=== PATIENT | male | born 1960 | race Caucasian/White ===

== ENCOUNTER 2022-08-11 12:48 | Outpatient (CLI) | payer OTHER | END 2022-08-11 12:49 | disposition home or self-care (01) | LOC: SCSMRI 12:48 | PROVIDERS: ATTEND Podiatrist | DX: M76.62 Achilles tendinitis, left leg (principal); S99.822A Other specified injuries of left foot, initial encounter; M79.662 Pain in left lower leg; M25.572 Pain in left ankle and joints of left foot ==

== ENCOUNTER 2022-12-30 12:35 | Outpatient (CLI) | payer OTHER ==
[2022-12-30 13:55] LABS: Hematocrit 38.8 % (38.8-50.0); Hemoglobin 14.1 g/dL (13.5-17.5); Mean Corpuscular HGB CONC 36.3 g/dL (32.0-36.0); Mean Corpuscular Hemoglobin 33.6 pg (27.0-33.0); Mean Corpuscular Volume 92.4 fl (81.2-95.1); Mean Platelet Volume 9.3 fl (7.4-10.4); Platelet Count 428 10x3/uL (150-450); RBC Distribution Width 13.1 % (11.5-14.5); White Blood Cell (WBC) Count 7.6 10x3/uL (3.5-10.5)
[2022-12-30 14:16] LABS: INR-International Normal Ratio 0.9; Prothrombin Time 9.7 sec (9.5-12.1)
[2022-12-30 14:59] LABS: Anion Gap 16 mmol/L (10-20); BUN (Urea Nitrogen) 22 mg/dL (8.4-25.7); Calc. Creatinine Clearance 0 mL/min (70-130); Calcium 9.2 mg/dL (7.8-10.44); Carbon Dioxide 22 mmol/L (23-31); Chloride 106 mmol/L (98-107); Estimated GFR 68; Glucose 144 mg/dL (80-115); Potassium 4.2 mmol/L (3.5-5.1); Sodium 140 mmol/L (136-145)
== END 2022-12-30 12:36 | disposition home or self-care (01) ==
LOC: LABBT 12:35
PROVIDERS: ATTEND Neurological Surgery
DX: Z01.812 Encounter for preprocedural laboratory examination (principal); M48.061 Spinal stenosis, lumbar region without neurogenic claudication
CPT/HCPCS: 80048; 85027; 85610; 85730

== ENCOUNTER 2023-01-01 10:10 | Observation (INO) | payer OTHER ==
[2022-12-30 13:08] VITALS: BMI 32.3
[2023-01-01] MEDS ORDERED: Scopolamine 1.5 mg/72 hour Patch ONE (10:45)
[2023-01-01] MEDS ORDERED: Fentanyl 250 MCG/5 ML VIAL ONE (11:04)
[2023-01-01] MEDS ORDERED: HYDROmorphone 2 MG/ML VIAL ONE (11:04)
[2023-01-01] MEDS ORDERED: EPINEPHrine 1 MG/ML AMP ONE (11:29)
[2023-01-01] MEDS ORDERED: Vancomycin 1 GM VIAL ONE (11:29)
[2023-01-01] MEDS ORDERED: Bupivacaine PF 0.5% 30 ML VIAL ONE (11:29)
[2023-01-01] MEDS ORDERED: Thrombin 5000 UNITS/5 ML VIAL ONE (11:30)
[2023-01-01] MEDS ORDERED: CEFAZOLIN 2 GM VIAL ONE (11:56)
[2023-01-01] MEDS ORDERED: Sodium Chloride 0.9% 100 ML ONE (11:56)
[2023-01-01] MEDS ORDERED: SUGAMMADEX SODIUM 200 MG/2 ML VIAL ONE (12:00)
[2023-01-01] MEDS ORDERED: Midazolam HCl 2 mg/2 ml Vial ONE (12:04)
[2023-01-01] MEDS ORDERED: Ondansetron PF 4 MG/2 ML Vial ONE (12:10)
[2023-01-01] MEDS ORDERED: Rocuronium Bromide 10 MG/ML (10ML VIAL) ONE (12:10)
[2023-01-01] MEDS ORDERED: Glycopyrrolate 0.2 MG/ML 5 ML SYRINGE ONE (12:10)
[2023-01-01] MEDS ORDERED: Lidocaine 1% PF 5 ML VIAL ONE (12:10)
[2023-01-01] MEDS ORDERED: Dexamethasone 20 MG/5 ML VIAL ONE (12:10)
[2023-01-01] MEDS ORDERED: ePHEDrine Sulfate 50 MG/10 ML VIAL ONE ×2 (12:10→16:24)
[2023-01-01] MEDS ORDERED: PHENYLEPHRINE-NS 100 MCG/ML 10 ML SYRINGE ONE (12:10)
[2023-01-01] MEDS ORDERED: NEOSTIGMINE 3 MG/3 ML SYR 3 MG/3 ML SYRINGE ONE (12:10)
[2023-01-01] MEDS ORDERED: PROPOFOL 200 MG/20 ML VIAL ONE (12:10)
[2023-01-01] MEDS ORDERED: Vasopressin 20 UNITS/ML VIAL ONE ×2 (13:17→16:39)
[2023-01-01] MEDS ORDERED: Ondansetron HCl/PF 4 MG/2 ML Vial IVP PRN (14:36)
[2023-01-01] MEDS ORDERED: HYDROmorphone 2 MG/ML VIAL SLOW IVP PRN (14:36)
[2023-01-01] MEDS ORDERED: Promethazine HCl 25 MG/ML VIAL IM PRN (14:36)
[2023-01-01] MEDS ORDERED: Dexmedetomidine 200 MCG/2 ML VIAL ONE (14:56)
[2023-01-01] MEDS ORDERED: fentaNYL 50 mcg/mL 1 mL Vial ONE ×3 (15:51→19:20)
[2023-01-01] MEDS ORDERED: Bisacodyl 10 MG SUPP PR PRN (16:19)
[2023-01-01] MEDS ORDERED: Mag-Al 1200 mg/1200 mg/30 ML UDCUP PO PRN (16:19)
[2023-01-01] MEDS ORDERED: Acetaminophen 325 MG TAB PO PRN (16:19)
[2023-01-01] MEDS ORDERED: Acetaminophen/Codeine 30-300mg Tablet PO PRN (16:19)
[2023-01-01] MEDS ORDERED: HYDROcodone/Acetaminophen 7.5/325 mg Tablet PO PRN (16:19)
[2023-01-01] MEDS ORDERED: diphenhydrAMINE 50 MG/ML VIAL IVP PRN (16:19)
[2023-01-01] MEDS ORDERED: Ondansetron PF 4 MG/2 ML Vial IVP PRN (16:19)
[2023-01-01] MEDS: Sodium Chloride 0.9% 1,000 ML IV SCH (20:50)
[2023-01-01] MEDS: CEFAZOLIN 2 GM in Sodium Chloride 0.9% 100 ML IVPB SCH (20:51)
[2023-01-01] MEDS ORDERED: Atorvastatin Calcium 40 MG TAB PO SCH (21:00)
[2023-01-01] MEDS ORDERED: Tamsulosin HCl 0.4 MG CAP PO SCH (21:00)
[2023-01-02] MEDS: HYDROcodone/Acetaminophen 10/325 mg Tablet PO PRN ×4 (00:13→14:10)
[2023-01-02] MEDS: tiZANidine HCl 4 MG TAB PO PRN ×2 (04:30→11:20)
[2023-01-02] MEDS: Morphine 2 MG/ML VIAL SLOW IVP PRN ×2 (05:58→11:20)
[2023-01-02] MEDS: CEFAZOLIN 2 GM in Sodium Chloride 0.9% 100 ML IVPB SCH (05:58)
[2023-01-02] MEDS ORDERED: Tamsulosin HCl 0.4 MG CAP PO SCH (06:00)
[2023-01-02] MEDS: Sodium Chloride 0.9% 1,000 ML IV SCH (06:12)
[2023-01-02] MEDS ORDERED: Atenolol 25 MG TAB PO SCH (09:00)
[2023-01-02 12:25] VITALS: BP 115/71; TEMP 98.1
== END 2023-01-02 17:08 | disposition home or self-care (01) ==
LOC: SDC 10:10 → INTOOBSV 19:53 → SURG A 19:53
PROVIDERS: ADMIT Neurological Surgery; ATTEND Neurological Surgery
PROC: 01NB0ZZ Release Lumbar Nerve, Open Approach (ICD-10-PCS; principal; 2023-01-02)
DX: M48.062 Spinal stenosis, lumbar region with neurogenic claudication (principal); E78.00 Pure hypercholesterolemia, unspecified; G89.29 Other chronic pain; M19.90 Unspecified osteoarthritis, unspecified site; I48.91 Unspecified atrial fibrillation; I10 Essential (primary) hypertension; Z90.89 Acquired absence of other organs; F17.210 Nicotine dependence, cigarettes, uncomplicated; Z79.01 Long term (current) use of anticoagulants; Z79.899 Other long term (current) drug therapy
CPT/HCPCS: A4314; C1889; J0171; J1100; J1170; J2250; J2272; J2405; J2704; J3010; J3370; J3490; J7050; S0020

== ENCOUNTER 2023-02-28 02:36 | Observation (INO) | payer OTHER ==
[2023-02-28 05:02] VITALS: BMI 32.8
[2023-02-28] MEDS ORDERED: Acetaminophen 325 MG TAB PO PRN (05:02)
[2023-02-28] MEDS ORDERED: dilTIAZem 125 MG in Sodium Chloride 0.9% 100 ML IVPB SCH (05:15)
[2023-02-28] MEDS: HYDROcodone/Acetaminophen 7.5/325 mg Tablet PO PRN ×3 (05:29→19:45)
[2023-02-28 05:30] LABS: #Monocytes 1.9 thou/uL (0.11-0.59); #Neutrophils 16.5 thou/uL (1.40-6.50); %Basophils 0.1 % (0.0-1.0); %Lymphocytes 9.4 % (21.0-51.0); %Monocytes 9.1 % (0.0-10.0); Hematocrit 42.2 % (42.0-52.0); Hemoglobin 14.8 g/dL (14.0-18.0); Mean Corpuscular HGB CONC 35.1 g/dL (32.0-36.0); Mean Corpuscular Hemoglobin 33.4 pg (27.0-31.0); Mean Corpuscular Volume 95.3 fl (78.0-98.0); Mean Platelet Volume 9.2 fL (7.4-10.4); Platelet Count 342 10x3/uL (130-400); RBC Distribution Width 12.7 % (11.5-14.5); Red Blood Cell (RBC) Count 4.43 mill/uL (4.70-6.10); White Blood Cell (WBC) Count 20.7 10x3/uL (4.8-10.8)
[2023-02-28 05:55] LABS: Anion Gap 15 mmol/L (10-20); BUN (Urea Nitrogen) 15 mg/dL (8.4-25.7); Calc. Creatinine Clearance 118 mL/min (70-130); Calcium 10.2 mg/dL (7.8-10.44); Carbon Dioxide 20 mmol/L (23-31); Chloride 109 mmol/L (98-107); Estimated GFR 81; Glucose 179 mg/dL (80-115); Magnesium 1.9 mg/dL (1.6-2.6); Potassium 4.2 mmol/L (3.5-5.1); Sodium 140 mmol/L (136-145)
[2023-02-28] MEDS ORDERED: traMADol HCl 50 MG TAB PO PRN (07:10)
[2023-02-28] MEDS ORDERED: Atenolol 25 MG TAB PO SCH (09:00)
[2023-02-28 15:44] LABS: Bilirubin Negative (Negative); Blood, Urine Large (Negative); Glucose, Urine (Dipstick) 250 mg/dL (Negative); Ketone, Urine Negative (Negative); Leukocyte Negative (Negative); Nitrite Negative (Negative); Protein, Urine (Dipstick) 100 mg/dL (Neg-Trace); Urobilinogen 0.2 mg/dL (Less than 2); pH, Urine 5.5 (5.0-9.0)
[2023-02-28 15:45] LABS: Clarity Clear (Clear); Specific Gravity, Urine 1.024 (1.002-1.036)
[2023-02-28 15:54] LABS: Bacteria/HPF 1+ HPF (None Seen); CAUTI Indications for Culture Dysuria,urgency,freq; Calcium Oxalate Crystals Rare HPF (None Seen); RBC/HPF Greater than 50 HPF (0-3); Squamous Epithelial None Seen HPF (0-3); WBC/HPF 0-3 HPF (0-3); Yeast-Budding Rare HPF (None Seen)
[2023-02-28 15:56] LABS: Urine Culture Reflex No No
[2023-02-28 17:48] LABS: Troponin I 0.094 ng/mL (< 0.028)
[2023-02-28] MEDS: Apixaban 5 MG TAB PO SCH (19:45)
[2023-02-28] MEDS: Atenolol 25 MG TAB PO SCH (19:45)
[2023-02-28] MEDS ORDERED: Calcium Carbonate 500 MG ChewTAB PO PRN (19:49)
[2023-02-28] MEDS ORDERED: Atorvastatin Calcium 40 MG TAB PO SCH (21:00)
[2023-03-01 04:34] LABS: #Eosinphils 0.1 thou/uL (0.0-0.7); #Monocytes 1.2 thou/uL (0.11-0.59); #Neutrophils 9.5 thou/uL (1.40-6.50); %Basophils 0.3 % (0.0-1.0); %Eosinophils 0.6 % (0.0-10.0); %Lymphocytes 19.4 % (21.0-51.0); %Monocytes 9.1 % (0.0-10.0); %Neutrophils 69.9 % (42.0-75.0); Hematocrit 35.3 % (42.0-52.0); Hemoglobin 12.4 g/dL (14.0-18.0); Mean Corpuscular HGB CONC 35.1 g/dL (32.0-36.0); Mean Corpuscular Hemoglobin 33.1 pg (27.0-31.0); Mean Corpuscular Volume 94.1 fl (78.0-98.0); Mean Platelet Volume 9.3 fL (7.4-10.4); Platelet Count 254 10x3/uL (130-400); RBC Distribution Width 12.7 % (11.5-14.5); Red Blood Cell (RBC) Count 3.75 mill/uL (4.70-6.10); White Blood Cell (WBC) Count 13.6 10x3/uL (4.8-10.8)
[2023-03-01] MEDS: HYDROcodone/Acetaminophen 7.5/325 mg Tablet PO PRN (04:36)
[2023-03-01 05:03] LABS: Anion Gap 12 mmol/L (10-20); BUN (Urea Nitrogen) 17 mg/dL (8.4-25.7); Calc. Creatinine Clearance 122 mL/min (70-130); Calcium 9.3 mg/dL (7.8-10.44); Carbon Dioxide 26 mmol/L (23-31); Chloride 103 mmol/L (98-107); Estimated GFR 85; Glucose 89 mg/dL (80-115); Magnesium 1.8 mg/dL (1.6-2.6); Potassium 3.7 mmol/L (3.5-5.1); Sodium 137 mmol/L (136-145)
[2023-03-01 07:28] VITALS: BP 139/87; TEMP 98
[2023-03-01] MEDS: Atenolol 25 MG TAB PO SCH (08:43)
[2023-03-01] MEDS: Apixaban 5 MG TAB PO SCH (08:43)
== END 2023-03-01 11:35 | disposition home or self-care (01) ==
LOC: 2SW 02:36 → OBSVTOIN 05:05 → INTOOBSV 05:05
PROVIDERS: ADMIT Internal Medicine; ATTEND Internal Medicine
DX: I48.0 Paroxysmal atrial fibrillation (principal); I21.4 Non-ST elevation (NSTEMI) myocardial infarction; D72.829 Elevated white blood cell count, unspecified; I10 Essential (primary) hypertension; E78.5 Hyperlipidemia, unspecified; F17.290 Nicotine dependence, other tobacco product, uncomplicated; Z90.89 Acquired absence of other organs; Z79.899 Other long term (current) drug therapy; Z79.01 Long term (current) use of anticoagulants
CPT/HCPCS: 36415; 80048; 81001; 83735; 85025; 93005; 93010; 96374; G0378; J3490

== ENCOUNTER 2023-06-10 08:49 | Day surgery (SDC) | payer OTHER ==
[2023-06-08 11:19] VITALS: BMI 33.0
[2023-06-08 11:45] LABS: Hematocrit 37.5 % (38.8-50.0); Mean Corpuscular HGB CONC 37.3 g/dL (32.0-36.0); Mean Corpuscular Hemoglobin 33.8 pg (27.0-33.0); Mean Corpuscular Volume 90.6 fl (81.2-95.1); Mean Platelet Volume 9.2 fl (7.4-10.4); Platelet Count 321 10x3/uL (150-450); RBC Distribution Width 12.7 % (11.5-14.5); Red Blood Cell (RBC) Count 4.14 10x6/uL (4.32-5.72); White Blood Cell (WBC) Count 6.5 10x3/uL (3.5-10.5)
[2023-06-08 12:07] LABS: INR-International Normal Ratio 0.9; PTT 29.4 sec (22.0-33.0); Prothrombin Time 10.2 sec (9.5-12.1)
[2023-06-08 12:11] LABS: Anion Gap 14 mmol/L (10-20); BUN (Urea Nitrogen) 16 mg/dL (8.4-25.7); Calc. Creatinine Clearance 117 mL/min (70-130); Carbon Dioxide 21 mmol/L (23-31); Chloride 107 mmol/L (98-107); Estimated GFR 80; Glucose 104 mg/dL (80-115); Potassium 4.3 mmol/L (3.5-5.1); Sodium 138 mmol/L (136-145)
[2023-06-10] MEDS ORDERED: Heparin 25,000 units/D5W 500 ML ONE (09:48)
[2023-06-10] MEDS ORDERED: Isoproterenol 0.2 MG/1 ML AMP ONE (09:48)
[2023-06-10] MEDS ORDERED: Protamine Sulfate 50 MG/5 ML VIAL ONE (09:48)
[2023-06-10] MEDS ORDERED: Heparin 10,000 UNITS/ 10 ML VIAL ONE (09:48)
[2023-06-10] MEDS ORDERED: Famotidine/PF 20 mg/2ml Vial ONE (10:03)
[2023-06-10] MEDS ORDERED: Ondansetron PF 4 MG/2 ML Vial ONE (11:58)
[2023-06-10] MEDS ORDERED: Lidocaine 1% PF 5 ML VIAL ONE (11:58)
[2023-06-10] MEDS ORDERED: PROPOFOL 200 MG/20 ML VIAL ONE (11:58)
[2023-06-10] MEDS ORDERED: SUCCINYLCHOLINE/SOD CL,ISO/PF 200 MG/10 ML SYRINGE FS ONE (11:58)
[2023-06-10] MEDS ORDERED: PHENYLEPHRINE-NS 100 MCG/ML 10 ML SYRINGE ONE (11:58)
[2023-06-10] MEDS ORDERED: Rocuronium Bromide 10 MG/ML (10ML VIAL) ONE (11:58)
[2023-06-10] MEDS ORDERED: Metoclopramide HCl 10 MG (2 mL) VIAL ONE (11:58)
[2023-06-10] MEDS ORDERED: Dexamethasone 20 MG/5 ML VIAL ONE (11:58)
[2023-06-10] MEDS ORDERED: fentaNYL 50 mcg/mL 1 mL Vial ONE ×2 (12:11→14:17)
[2023-06-10] MEDS ORDERED: SUGAMMADEX SODIUM 200 MG/2 ML VIAL ONE (14:17)
[2023-06-10] MEDS ORDERED: Ketorolac Tromethamine 30 MG (1 mL) VIAL ONE (17:20)
== END 2023-06-10 19:05 | disposition home or self-care (01) ==
LOC: SDC 08:49
PROVIDERS: ATTEND Internal Medicine Cardiovascular Disease
PROC: 4A0234Z Measurement of Cardiac Electrical Activity, Percutaneous Approach (ICD-10-PCS; principal; 2023-06-10)
PROC: 02583ZZ Destruction of Conduction Mechanism, Percutaneous Approach (ICD-10-PCS; principal; 2023-06-10)
DX: I48.0 Paroxysmal atrial fibrillation (principal); I10 Essential (primary) hypertension; E78.00 Pure hypercholesterolemia, unspecified; F17.200 Nicotine dependence, unspecified, uncomplicated; E66.09 Other obesity due to excess calories; Z68.33 Body mass index [BMI] 33.0-33.9, adult; Z79.01 Long term (current) use of anticoagulants; Z88.8 Allergy status to other drugs, medicaments and biological substances; Z79.82 Long term (current) use of aspirin; Z79.899 Other long term (current) drug therapy
CPT/HCPCS: 80048; 85027; 85347; 85610; 85730; 93005; 93623; 93656; 93657; C1732; C1759; C1760; C1894; J1100; J1644; J1885; J2405; J2704; J2720; J2765; J3010; S0028

== ENCOUNTER 2023-11-16 16:49 | Emergency (ER) | payer OTHER ==
[2023-11-16 18:31] LABS: #Basophils 0.04 10x3/uL (0.0-0.2); %Basophils 0.3 % (0.0-1.0); %Eosinophils 0.8 % (0.0-10.0); %Monocytes 6.1 % (0.0-10.0); %Neutrophils 79.7 % (42.0-75.0); Hematocrit 37.3 % (42.0-52.0); Hemoglobin 13.4 g/dL (14.0-18.0); Mean Corpuscular HGB CONC 35.9 g/dL (32.0-36.0); Mean Corpuscular Hemoglobin 32.8 pg (27.0-31.0); Mean Corpuscular Volume 91.2 fL (78.0-98.0); Platelet Count 295 10x3/uL (130-400); RBC Distribution Width 12.6 % (11.5-14.5); Red Blood Cell (RBC) Count 4.09 mill/uL (4.70-6.10)
[2023-11-16 18:53] LABS: ALT (SGPT) 39 U/L (8-55); AST (SGOT) 32 U/L (5-34); Albumin 4.4 g/dL (3.4-4.8); Alkaline Phosphatase 73 U/L (40-110); Anion Gap 14 mmol/L (10-20); BUN (Urea Nitrogen) 10 mg/dL (8.4-25.7); Bilirubin, Total 0.8 mg/dL (0.2-1.2); Calc. Creatinine Clearance 0 mL/min (70-130); Calcium 9.6 mg/dL (7.8-10.44); Carbon Dioxide 27 mmol/L (23-31); Chloride 110 mmol/L (98-107); Estimated GFR 53; Glucose 111 mg/dL (80-115); Potassium 4.7 mmol/L (3.5-5.1); Protein, Total 7.4 g/dL (5.8-8.1); Sodium 146 mmol/L (136-145)
[2023-11-16 18:55] LABS: Troponin I Less than 0.010 ng/mL (< 0.028)
== END 2023-11-16 20:05 | disposition home or self-care (01) ==
LOC: ERS 16:49
DX: E86.0 Dehydration (principal); F17.290 Nicotine dependence, other tobacco product, uncomplicated
CPT/HCPCS: 36415; 71045; 80053; 84484; 85025; 93005; 96360